=== PATIENT | female | born 1960 | race Caucasian/White ===

== ENCOUNTER 2017-05-29 13:17 | Outpatient (CLI) | payer OTHER ==
--- NOTE | 2017-05-29 16:58 | MMO ---
BILATERAL FILM SCREEN MAMMOGRAM 05/29/17 COMPARISON: 01/31/16, 02/01/15, 02/03/14, 01/31/13, 02/05/12 exams. HISTORY: Annual screening exam. Films are reviewed with the assistance of computer aided detection. Scattered fibroglandular changes of both breasts are present. There is no dominant mass, suspicious c alcifications, or other signs of malignancy. IMPRESSION: BI-RADS 1: Negative Routine annual screening mammography (for women over age 40) POS: JENNIFER
== END 2017-05-29 13:18 | disposition home or self-care (01) ==
LOC: SCSMAMMO 13:17
PROVIDERS: ATTEND Internal Medicine
DX: Z12.31 Encounter for screening mammogram for malignant neoplasm of breast (principal)
CPT/HCPCS: 77067

== ENCOUNTER 2018-06-19 15:20 | Outpatient (CLI) | payer OTHER ==
--- NOTE | 2018-06-19 17:01 | MMO ---
ANNUAL DIGITAL SCREENING MAMMOGRAM 06/19/18 Comparison made to a previous exam from 02/05/12. Bilateral craniocaudal and oblique mediolateral digital screening mammograms obtained. Images also ev aluated using computer aided detection. Images demonstrate two areas of possible spiculated density overlying shadows in the upper aspect of the left breast seen on the MLO view. These areas are definitely are not seen on the CC view. I do re commend further evaluation using tomosynthesis with spot compression views of the left breast. In add ition, spot compression views and possible sonographic evaluation also recommended. IMPRESSION: BIRADS 0: Incomplete: Need Additional Imaging Evaluation and/or Prior Mammograms for Comparison Additional left breast mammographic and possible sonographic evaluation recommended if clinically ind icated. POS: JENNIFER
== END 2018-06-19 15:21 | disposition home or self-care (01) ==
LOC: SCSMAMMO 15:20
PROVIDERS: ATTEND Internal Medicine
DX: Z12.31 Encounter for screening mammogram for malignant neoplasm of breast (principal)
CPT/HCPCS: 77067